=== PATIENT | male | born 1945 | race Caucasian/White ===

== ENCOUNTER 2019-05-08 23:50 | Emergency (ER) | payer MEDICARE ==
[2019-05-09 00:27] LABS: Basophils % (A) 0 %; Eosinophils # (A) 0.1 k/uL (0-0.7); Eosinophils % (A) 1 %; HCT 39.4 % (39.0-53.0); HGB 12.7 gm/dL (13.0-17.5); Lymphocytes # (A) 1.4 k/uL (1.0-4.8); Lymphocytes % (A) 9 %; MCH 27.8 pg (25.0-35.0); MCHC 32.2 g/dL (31.0-37.0); MCV 86.3 fL (80.0-100.0); Mean Platelet Volume 8.8; Monocytes # (A) 0.7 k/uL (0-1.0); Monocytes % (A) 5 %; Neutrophils # (A) 12.7 k/uL (1.3-7.7); Neutrophils % (A) 85 %; Platelet Count 214 k/uL (150-450); RBC 4.57 m/uL (4.30-5.90); RDW 14.8 % (11.5-15.5)
[2019-05-09] MEDS ORDERED: SODIUM CHLORIDE 0.9% 1,000 ML IV STA (00:28)
[2019-05-09 00:31] LABS: Ionized Calcium 4.6 mg/dL (4.5-5.3)
--- NOTE | 2019-05-09 00:35 | ED ---
General Adult HPI - General Chief complaint: Weakness Stated complaint: Weakness Time Seen by Provider: 05/09/19 00:07 Source: patient, EMS Mode of arrival: EMS Limitations: no limitations - History of Present Illness Initial comments: Dictation was produced using [employer] dictation software. please excuse any grammatical, word or spelling errors. Chief Complaint: 73-year-old male past medical history of left bundle branch block and gout presents with generalized weakness, bilateral hand numbness, chest pain History of Present Illness: This 73-year-old male who presents with the effort mention chief complaints. Patient states he that home where he was working out with a friend taking a metal post out of the ground. He had a couple beers. Patient then went home ate some mushrooms from his backyard. He states these mushrooms are achy Is. States he prepared them on the stove. He then had a glass of wine with his with maura for dinner. Mainly after he began feeling flushing to his skin, lightheadedness, chest pain and abdominal pain. Patient feels nauseated however denies any vomiting. She denies any cardiac history overdosed no that he has a history of left bundle branch block. He reports that the pain is sharp and constant in the lower substernal area radiating to the abdomen. The ROS documented in this emergency department record has been reviewed and confirmed by me. Those systems with pertinent positive or negative responses have been documented in the HPI. All other systems are other negative and/or noncontributory. PHYSICAL EXAM: General Impression: Alert and oriented x3, not in acute distress HEENT: Normocephalic atraumatic, extra-ocular movements intact, pupils equal and reactive to light bilaterally, mucous membranes moist. Cardiovascular: Heart regular rate and rhythm, S1&S2 audible, no murmurs, rubs or gallops Chest: Lungs clear to auscultation bilaterally, no rhonchi, no wheeze, no rales Abdomen: Bowel sounds present, abdomen soft, non-tender, non-distended, no organomegaly Musculoskeletal: Pulses present and equal in all extremities, no peripheral edema Motor: no focal deficits noted Neurological: CN II-XII grossly intact, no focal motor or sensory deficits noted Skin: Flushing to the entire skin Psych: Normal affect and mood ED course: 73-year-old male presents with chest pain, rash, generalized weakness. Vital signs upon arrival shows blood pressure 105/64, rest of vital signs within acceptable limits. Patient has a diffuse rash. Given that patient had alcohol and these curious mushrooms there is concern for disulfiram reaction. Discussed patient is a pleasant atrophic who recommends supportive care and laboratory evaluation. Patient given intravenous fluids. Laboratory evaluation tape. Patient is leukocytosis of 15.0 likely secondary to stress. Chem panel is unremarkable. Rest of labs shows no acute processes. Even intravenous fluids. Patient observed in the emergency department. Patient reevaluated after several hours of observation with improvement of symptoms. Patient feels at baseline at this time. Patient told to avoid alcohol and those mushrooms. Patient's clinical presentation consistent with the sulfa reaction. Patient clear for discharge. Return parameters EKG interpretation: Ventricular rate 95, normal sinus rhythm,. Interval 176, QS 160, QTC 5:30.. No GA prolongation. No old EKG for comparison. Patient reports history of left bundle branch block. Patient does have prolonged QT of 530. - Related Data Home Medications Medication Instructions Recorded Confirmed Allopurinol [Zyloprim] 100 mg PO DAILY 05/09/19 05/09/19 Allergies Allergy/AdvReac Type Severity Reaction Status Date / Time No Known Allergies Allergy Verified 05/09/19 00:45 Review of Systems ROS Statement: Those systems with pertinent positive or pertinent negative responses have been documented in the HPI. ROS Other: All systems not noted in ROS Statement are negative. Past Medical History Additional Past Medical History / Comment(s): gout History of Any Multi-Drug Resistant Organisms: None Reported Past Psychological History: No Psychological Hx Reported Smoking Status: Never smoker Past Alcohol Use History: Occasional Past Drug Use History: Marijuana General Exam Limitations: no limitations Course Vital Signs 05/08/19 05/09/19 05/09/19 23:53 00:04 00:10 Temperature 97.8 F Pulse Rate 98 99 97 Respiratory 18 17 18 Rate Blood Pressure 105/64 105/64 100/59 O2 Sat by Pulse 94 L 95 95 Oximetry 05/09/19 05/09/19 05/09/19 00:30 00:40 01:00 Temperature Pulse Rate 95 93 90 Respiratory 18 17 18 Rate Blood Pressure 92/59 87/62 113/67 O2 Sat by Pulse 93 L 94 L 93 L Oximetry 05/09/19 05/09/19 05/09/19 01:10 01:30 01:40 Temperature Pulse Rate 91 92 92 Respiratory 13 17 18 Rate Blood Pressure 115/72 122/74 126/79 O2 Sat by Pulse 93 L 95 94 L Oximetry 05/09/19 02:00 Temperature Pulse Rate 90 Respiratory 19 Rate Blood Pressure 115/75 O2 Sat by Pulse 91 L Oximetry Medical Decision Making - Lab Data Result diagrams: 05/09/19 00:01 05/09/19 00:01 Lab Results 05/09/19 05/09/19 05/09/19 Range/Units 00:01 00:01 00:01 WBC 15.0 H (3.8-10.6) k/uL RBC 4.57 (4.30-5.90) m/uL Hgb 12.7 L (13.0-17.5) gm/dL Hct 39.4 (39.0-53.0) % MCV 86.3 (80.0-100.0) fL MCH 27.8 (25.0-35.0) pg MCHC 32.2 (31.0-37.0) g/dL RDW 14.8 (11.5-15.5) % Plt Count 214 (150-450) k/uL Neutrophils % 85 % Lymphocytes % 9 % Monocytes % 5 % Eosinophils % 1 % Basophils % 0 % Neutrophils # 12.7 H (1.3-7.7) k/uL Lymphocytes # 1.4 (1.0-4.8) k/uL Monocytes # 0.7 (0-1.0) k/uL Eosinophils # 0.1 (0-0.7) k/uL Basophils # 0.0 (0-0.2) k/uL Sodium 142 (137-145) mmol/L Potassium 4.3 (3.5-5.1) mmol/L Chloride 109 H (98-107) mmol/L Carbon Dioxide 24 (22-30) mmol/L Anion Gap 9 mmol/L BUN 32 H (9-20) mg/dL Creatinine 1.27 H (0.66-1.25) mg/dL Est GFR (CKD-EPI)AfAm 65 (>60 ml/min/1.73 sqM) Est GFR (CKD-EPI)NonAf 57 (>60 ml/min/1.73 sqM) Glucose 148 H (74-99) mg/dL Calcium 9.5 (8.4-10.2) mg/dL Ionized Calcium Doroteo 4.6 (4.5-5.3) mg/dL Magnesium 2.2 (1.6-2.3) mg/dL Total Bilirubin 0.3 (0.2-1.3) mg/dL AST 23 (17-59) U/L ALT 24 (21-72) U/L Alkaline Phosphatase 52 (38-126) U/L Troponin I <0.012 (0.000-0.034) ng/mL Total Protein 6.8 (6.3-8.2) g/dL Albumin 4.4 (3.5-5.0) g/dL TSH 3.550 (0.465-4.680) mIU/L Disposition Clinical Impression: Disulfiram adverse reaction Disposition: HOME SELF-CARE Condition: Good Instructions (If sedation given, give patient instructions): Disulfiram (By mouth) Is patient prescribed a controlled substance at d/c from ED?: No Referrals: Aguila Chester DO [Primary Care Provider] - 1-2 days Time of Disposition: 02:41
[2019-05-09 00:39] LABS: Calcium 9.5 mg/dL (8.4-10.2); Magnesium 2.2 mg/dL (1.6-2.3); Potassium 4.3 mmol/L (3.5-5.1)
[2019-05-09 01:34] LABS: Albumin 4.4 g/dL (3.5-5.0); Total Bilirubin 0.3 mg/dL (0.2-1.3); Total Protein 6.8 g/dL (6.3-8.2)
[2019-05-09 03:03] VITALS: BP 126/77; PULSE 96; RESP 18; TEMP 98.7
== END 2019-05-09 03:03 | disposition home or self-care (01) ==
LOC: EC 23:50
DX: R07.2 Precordial pain (principal); T50.6X5A Adverse effect of antidotes and chelating agents, initial encounter; R42 Dizziness and giddiness; R10.9 Unspecified abdominal pain; R53.1 Weakness; R20.0 Anesthesia of skin; M10.9 Gout, unspecified; Z79.899 Other long term (current) drug therapy
CPT/HCPCS: 36415; 80053; 82330; 83735; 84443; 84484; 85025; 96360; 99285

== ENCOUNTER → 2019-05-14 | Outpatient (CLI) | payer MEDICARE ==
--- NOTE | 2019-05-14 15:22 | MR ---
EXAMINATION TYPE: MR knee RT wo con DATE OF EXAM: 05/14/2019 COMPARISON: HISTORY: Pain in Right knee TECHNIQUE: Multiplanar, multisequence imaging of the right knee is performed without IV contrast. FINDINGS: MEDIAL MENISCUS: There is linear increased signal within the posterior horn the medial meniscus which extends the articular surface, the meniscus appears somewhat truncated. LATERAL MENISCUS: Anterior and posterior horns are intact without tear. CRUCIATE LIGAMENTS: The anterior and posterior cruciate ligaments are intact and unremarkable. COLLATERAL LIGAMENTS: The medial collateral ligament and lateral collateral ligament complex are inta ct and unremarkable. EXTENSOR MECHANISM: Visualized quadriceps and patellar tendons are intact. EFFUSION: Suprapatellar joint effusion is present. POPLITEAL CYST: No popliteal/villarreal cyst. 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 IMPRESSION: Osteoarthritis. There is a tear of the posterior horn of the medial meniscus.
== END | disposition home or self-care (01) ==
LOC: RADMRIMAIN 07:14
PROVIDERS: ATTEND Family Medicine
DX: M17.11 Unilateral primary osteoarthritis, right knee (principal); S83.241A Other tear of medial meniscus, current injury, right knee, initial encounter

== ENCOUNTER → 2020-10-17 | Outpatient (CLI) | payer MEDICARE ==
--- NOTE | 2020-10-17 15:24 | MR ---
EXAMINATION TYPE: MR shoulder RT wo con DATE OF EXAM: 10/17/2020 COMPARISON: None HISTORY: 75-year-old male Pain in right shoulder TECHNIQUE: Multiplanar, multisequence imaging of the right shoulder is performed without contrast. FINDINGS: Motion degrading artifacts are present. Incidental superficial muscular lipoma along the lateral aspect of the deltoid measuring 4.1 cm long by 0.9 cm wide by 2.5 cm AP. There is a split tear extending throughout the long head biceps tendon. The extracapsular portion rem ains appropriately situated along the bicipital groove. Mild to moderate tenosynovial fluid. Heterogeneous signal of the subscapularis tendon. Areas of intrasubstance tearing are present but the majority of the tendon remains intact. Moderate to severe degenerative joint space narrowing with marginal spurring at the acromioclavicular joint. Changes extend into the subacromial space without significant mass effect on to the myotendin ous junction of the supraspinatus. There is a mild effusion in the subacromial/subdeltoid bursa and an intrasubstance tear at the footpr int of the anterior to mid supraspinatus tendon measuring 1.6 cm AP and 6 mm long. Tear shows some bu rsal surface extension images on coronal image 12 and 15. Additional heterogeneous signal throughout both surface and infraspinatus tendons. Bursal sided frayi ng noted at the junction of both supraspinatus and infraspinatus tendons. Irregular abnormal signal within the posterior superior glenoid labrum. Mild to moderate irregular ca rtilage thinning throughout the glenohumeral joint with some marginal spurring along the anterior cli noid. No significant joint effusion. No atrophy of the rotator cuff musculature. No Hill-Sachs deformity or os acromiale. Patchy red marrow is present and can be seen in the setting of anemia, smoking, chronic disease. IMPRESSION: 1. Diffuse rotator cuff tendinosis with scattered bursal sided fraying. There is an intrasubstance te ar at the footprint of the anterior to mid supraspinatus tendon that shows small areas of bursal side d extension. Tear measures 1.6 cm AP by 6 mm long. No displaced or full-thickness tear. 2. Split tear of the long head biceps tendon with mild to moderate tenosynovitis. 3. Moderate to severe AC joint OA. Inferior spurring may contribute to symptoms of subacromial imping ement. 4. Mild to moderate glenohumeral joint OA with an irregular, torn glenoid labrum. 5. Incidental superficial lipoma measuring 4.1 x 2.5 cm involving the lateral deltoid muscle.
== END | disposition home or self-care (01) ==
LOC: RADMRIMAIN 11:41
PROVIDERS: ATTEND Family Medicine
DX: S46.811A Strain of other muscles, fascia and tendons at shoulder and upper arm level, right arm, initial encounter (principal); S46.111A Strain of muscle, fascia and tendon of long head of biceps, right arm, initial encounter; S43.431A Superior glenoid labrum lesion of right shoulder, initial encounter; M19.011 Primary osteoarthritis, right shoulder; D17.21 Benign lipomatous neoplasm of skin and subcutaneous tissue of right arm

== ENCOUNTER → 2021-12-12 | Day surgery (SDC) | payer MEDICARE ==
[2021-12-07 10:48] VITALS: BMI 23.1
[~2021-12-12] MED LIST: LACTATED RINGERS 1,000 ML IV ONE; LACTATED RINGERS 1,000 ML IV SCH; PROPOFOL 10 MG/ML 20 ML VIAL IV ONE
[2021-12-12 09:40] VITALS: TEMP 97.8
--- NOTE | 2021-12-12 10:59 | P.PCN ---
Date of Procedure: 12/12/21 Procedure(s) Performed: BRIEF HISTORY: Patient is a 76-year-old pleasant white male scheduled for an elective colonoscopy as a part of screening for colorectal neoplasia. PROCEDURE PERFORMED: Colonoscopy with biopsy and snare polypectomy. PREOPERATIVE DIAGNOSIS: Screening for colon cancer. IV sedation per Anesthesia. PROCEDURE: After informed consent was obtained, the patient, was brought into the endoscopy unit. IV sedation was administered by Anesthesia under continuous monitoring. Digital rectal examination was normal. Initially the Olympus CF-160 flexible video colonoscope was then inserted in the rectum, gradually advanced into the cecum without any difficulty. Careful examination was performed as the scope was gradually being withdrawn. Ileocecal valve and the appendiceal orifice were visualized and appeared normal. Prep was excellent. Mucosa of the cecum, appeared normal. In the ascending colon there was a 3 mm polyp removed by cold biopsy. In the transverse colon there was a 5 mm polyp removed by cold biopsy. Rest of the ascending colon, transverse colon, descending colon, appeared normal. In the sigmoid colon there was a 1.5 cm broad-based polyp removed by snare polypectomy. Scattered sigmoid diverticulosis seen. Rest of the sigmoid colon, and rectum appeared normal. Retroflexion was performed in the rectum and no lesions were seen. The patient tolerated the procedure well. IMPRESSION: 1.5 cm broad-based sigmoid colon polyp status post polypectomy 3 mm ascending colon polyp status post cold biopsy 5 mm transverse colon polyp status post cold biopsy Scattered sigmoid diverticula RECOMMENDATIONS: Findings of this examination were discussed with the patient as well as a family. He was advised to follow with the biopsy results. If the biopsy reveals adenoma he can have a repeat colonoscopy in 3
[2021-12-12 11:26] VITALS: BP 133/80; PULSE 84; RESP 14
== END ==
LOC: ORWHC2ENDO 08:54
PROVIDERS: ATTEND Internal Medicine Gastroenterology
DX: Z12.11 Encounter for screening for malignant neoplasm of colon (principal); K57.30 Diverticulosis of large intestine without perforation or abscess without bleeding; D12.3 Benign neoplasm of transverse colon; D12.2 Benign neoplasm of ascending colon
CPT/HCPCS: 45380; 45385; 88305; J2704

== ENCOUNTER → 2023-10-07 | Outpatient (CLI) | payer MEDICARE ==
--- NOTE | 2023-10-07 21:37 | MR ---
EXAMINATION TYPE: MR brain and iac wo/w con DATE OF EXAM: 10/07/2023 COMPARISON: None HISTORY: Left ear hearing loss and tinnitus. CONTRAST: Performed utilizing 6.5 mL intravenous Gadavist gadolinium contrast. TECHNIQUE: Multiplanar, multiecho imaging on a 3.0 Kathleen magnet is performed through the brain. Atte ntion is paid to the internal auditory canals with thin section imaging. Postcontrast imaging is per formed through the internal auditory canals. FINDINGS:Craniovertebral junction is normal. The pituitary is normal. Optic chiasm as visualized jair ears normal. Diffusion-weighted imaging is performed. No suspicious hyperintensity is present to suggest an acute intracranial infarct or acute ischemic area. Signal within the brain has scattered areas of hyperintensity which are non-specific but could be rel ated to microvascular ischemic changes. Subcortical white matter changes are in the right frontal lo be. Some cortical changes are within the left anterior barillas radiata. There is some mild prominence of ventricles and sulci compatible with atrophy Thin section imaging is performed through the internal auditory canals and cerebellar pontine angles. No cerebellar pontine angle masses are evident. The internal auditory canals appear normal without expansion or erosion. Mastoid air cells are clear. Postcontrast imaging was performed. No suspicious enhancement is evident within the internal audito ry canals or the included portions of the brain. IMPRESSION: 1. No suspicious changes internal auditory canals or cerebellar pontine angles. 2. Scattered periventricular and subcortical deep white matter changes likely on the basis of chronic white matter ischemic change
== END | disposition home or self-care (01) ==
LOC: RADMRIMAIN 13:46
PROVIDERS: ATTEND Otolaryngology
DX: H90.A22 Sensorineural hearing loss, unilateral, left ear, with restricted hearing on the contralateral side (principal); H93.12 Tinnitus, left ear; R90.82 White matter disease, unspecified
CPT/HCPCS: 70553; A9585

== ENCOUNTER → 2025-01-28 | Outpatient (CLI) | payer MEDICARE ==
--- NOTE | 2025-01-28 18:02 | CA ---
Transthoracic Echo Report Name: Rony Giron Age: 79 Gender: M : 1945 Exam Date: 01/28/2025 14:19 Exam Location: [facility] Ht (in): 64 Wt (lb): 135 Ordering Physician: Aguila Chester DO Attending/Referring Phys: Alejandro Partida MD [employer] Sonia Pang RDCS Procedure CPT: Indications: R01.1 cardiac murmur Cardiac Hx: Technical Quality: Good Contrast 1: Total Dose (mL): Contrast 2: Total Dose (mL): MEASUREMENTS (Male / Female) Normal Values 2D ECHO LV Diastolic Diameter PLAX 5.2 cm 4.2 - 5.9 / 3.9 - 5.3 cm LV Systolic Diameter PLAX 3.1 cm IVS Diastolic Thickness 1.1 cm 0.6 - 1.0 / 0.6 - 0.9 cm LVPW Diastolic Thickness 1.0 cm 0.6 - 1.0 / 0.6 - 0.9 cm LV Relative Wall Thickness 0.4 RV Internal Dim ED PLAX 3.7 cm LA Systolic Diameter LX 3.4 cm 3.0 - 4.0 / 2.7 - 3.8 cm LV Diastolic Volume MOD BP 70.5 cm??? 67 - 155 / 56 - 104 cm??? LV Systolic Volume MOD BP 31.0 cm??? - 58 / 19 - 49 cm??? LV Ejection Fraction MOD BP 56.1 % >= 55 % LV Cardiac Index MOD BP 1823.8 cm???/min???m??? LV Diastolic Volume MOD 4C 72.2 cm??? LV Systolic Volume MOD 4C 27.6 cm??? LV Ejection Fraction MOD 4C 61.8 % LV Cardiac Index MOD 4C 2058.9 cm???/min???m??? LV Diastolic Length 4C 8.5 cm LV Systolic Length 4C 7.3 cm LV Diastolic Volume MOD 2C 69.1 cm??? LV Systolic Volume MOD 2C 36.3 cm??? LV Ejection Fraction MOD 2C 47.4 % LV Cardiac Index MOD 2C 1510.4 cm???/min???m??? LV Diastolic Length 2C 8.4 cm LV Systolic Length 2C 8.1 cm LA Volume 34.6 cm??? 18 - 58 / 22 - 52 cm??? LA Volume Index 20.7 cm???/m??? 16 - 28 cm???/m??? M-MODE Aortic Root Diameter MM 4.1 cm AV Cusp Separation MM 2.0 cm DOPPLER AV Peak Velocity 154.0 cm/s AV Peak Gradient 9.5 mmHg MV Area PHT 2.5 cm??? Mitral E Point Velocity 56.2 cm/s Mitral A Point Velocity 86.9 cm/s Mitral E to A Ratio 0.6 MV Deceleration Time 308.0 ms TR Peak Velocity 245.7 cm/s TR Peak Gradient 24.2 mmHg Right Ventricular Systolic Press 29.2 mmHg FINDINGS Left Ventricle Left ventricular ejection fraction is estimated at 55-60 %. Left ventricular cavity size normal. Normal left ventricular wall motion. Right Ventricle Mild right ventricular dilatation. Right ventricular systolic pressure within normal limits. Right Atrium Normal right atrial size. No right atrial thrombus or mass seen. Left Atrium Normal left atrial size. No left atrial thrombus or mass present. Mitral Valve Structurally normal mitral valve.no evidence for mitral valve prolapse. No mitral stenosis. mild mitral regurgitation. Aortic Valve Trileaflet aortic valve. No aortic valve stenosis or regurgitation. Tricuspid Valve Structurally normal tricuspid valve.mild tricuspid regurgitation. Pulmonic Valve Structurally normal pulmonic valve. Trace pulmonic regurgitation. Pericardium No pericardial effusion. Aorta Mild aortic dilatation at the level of the sinuses of valsalva 41 mm CONCLUSIONS 1. Normal left ventricular size and systolic function 2. Mild mitral and tricuspid regurgitation 3. Mildly dilated ascending aorta Previewed by: Dr. George Wilkins MD (Electronically Signed) Final Date: 28 January 2025 18:01
== END | disposition home or self-care (01) ==
LOC: RADECHMAIN 14:06
PROVIDERS: ATTEND Family Medicine
DX: R01.1 Cardiac murmur, unspecified (principal); I08.1 Rheumatic disorders of both mitral and tricuspid valves; I37.1 Nonrheumatic pulmonary valve insufficiency
CPT/HCPCS: 93306

== ENCOUNTER 2025-03-09 10:41 | Day surgery (SDC) | payer MEDICARE ==
[~2025-03-09 10:41] MED LIST changes: -LACTATED RINGERS 1,000 ML IV ONE; -LACTATED RINGERS 1,000 ML IV SCH; +LIDOCAINE 1% (10MG/ML) FOR IV START INTRADERMA PRN; +ONDANSETRON 4 MG/2 ML VIAL IVP PRN; -PROPOFOL 10 MG/ML 20 ML VIAL IV ONE
[2025-03-09] MEDS: IV FLUID CONTINUATION 1,000 ML IV ONE (11:12)
[2025-03-09 11:18] VITALS: TEMP 97
[2025-03-09] MEDS: LACTATED RINGERS 1,000 ML IV SCH (11:23)
[2025-03-09] MEDS ORDERED: PROPOFOL 10 MG/ML 20 ML VIAL IV ONE (11:49)
[2025-03-09] MEDS ORDERED: LIDOCAINE 1% INJ 10MG/ML (20 ML MDV) ONE (11:49)
--- NOTE | 2025-03-09 12:07 | P.PCN ---
Date of Procedure: 03/09/25 Procedure(s) Performed: BRIEF HISTORY: Patient is a 79-year-old pleasant white male scheduled for an elective colonoscopy as a part of screening for prior history of colon polyps. Last colonoscopy was 3 years ago and was noted to have a tubular adenoma. PROCEDURE PERFORMED: Colonoscopy with biopsy. PREOPERATIVE DIAGNOSIS: Screening for history of colon polyps. IV sedation per Anesthesia. PROCEDURE: After informed consent was obtained, the patient, was brought into the endoscopy unit. IV sedation was administered by Anesthesia under continuous monitoring. Digital rectal examination was normal. Initially the Olympus CF-160 flexible video colonoscope was then inserted in the rectum, gradually advanced into the cecum without any difficulty. Careful examination was performed as the scope was gradually being withdrawn. Ileocecal valve and the appendiceal orifice were visualized and appeared normal. Prep was excellent. Mucosa of the cecum, ascending colon, appeared normal.In the hepatic flexure there was a 5 mm polyp that was removed by cold biopsy. Rest of the transverse colon, descending colon, sigmoid colon, and rectum appeared normal. In the proximal rectum there was a 4 mm polyp removed by cold biopsy. Scattered sigmoid diverticulosis seen. Retroflexion was performed in the rectum and no lesions were seen. The patient tolerated the procedure well. IMPRESSION: 5 mm polyp in the hepatic flexure status post cold biopsy 4 mm proximal rectal polyp status post cold biopsy Scattered sigmoid diverticulosis RECOMMENDATIONS: Findings of this examination were discussed with the patient as well as his family. He was advised to follow-up with the biopsy results.. If the biopsy reveals adenoma he can have repeat colonoscopy in 5 years
[2025-03-09 12:27] VITALS: BP 139/89; PULSE 62; RESP 17
== END 2025-03-09 12:39 | disposition home or self-care (01) ==
LOC: ORWHC2ENDO 10:41
PROVIDERS: ATTEND Internal Medicine Gastroenterology
DX: Z12.11 Encounter for screening for malignant neoplasm of colon (principal); D12.3 Benign neoplasm of transverse colon; K62.1 Rectal polyp; K57.30 Diverticulosis of large intestine without perforation or abscess without bleeding; K21.9 Gastro-esophageal reflux disease without esophagitis; M10.9 Gout, unspecified; Z79.899 Other long term (current) drug therapy; Z86.0101 Personal history of adenomatous and serrated colon polyps
CPT/HCPCS: 45380; 88305; J2003; J2704